=== PATIENT | female | born 1955 | race Caucasian/White ===

== ENCOUNTER 2017-08-10 02:04 | Emergency (ER) | payer MEDICARE, OTHER ==
[~2017-08-10] VITALS: Ht 172.7 cm; Wt 61.4 kg
[~2017-08-10 02:04] MED LIST: CIPROFLOXACN500 MG PO; CVS OMEPRAZOLE20 MG; MUCINEX600 MG PO; SUCRALFATE1 GM PO; ZITHROMAX250 MG PO; ZYRTEC10 MG PO
[2017-08-10] MEDS ORDERED: BENTYL10 MG PO (02:20)
[2017-08-10] MEDS ORDERED: PERCOCET 5/325M1 TAB PO (02:59)
[2017-08-10 03:23] VITALS: BP 146/88
== END 2017-08-10 03:25 | disposition home or self-care (01) ==
LOC: ED 02:04
DX: S93.602A Unspecified sprain of left foot, initial encounter (principal); K58.9 Irritable bowel syndrome, unspecified; F41.9 Anxiety disorder, unspecified; F32.9 Major depressive disorder, single episode, unspecified; X50.1XXA Overexertion from prolonged static or awkward postures, initial encounter; Y92.009 Unspecified place in unspecified non-institutional (private) residence as the place of occurrence of the external cause